=== PATIENT | female | born 1990 | race Caucasian/White ===

== ENCOUNTER 2016-12-17 19:59 | Emergency (ER) | payer BC, MEDICAID ==
[2016-12-17] MEDS ORDERED: Ondansetron 4 MG/2 ML SDV IVPUSH ONE (20:36)
[2016-12-17] MEDS ORDERED: HYDROmorphone 0.5 MG/0.5 ML Syringe ONE (20:46)
[2016-12-17] MEDS ORDERED: HYDROmorphone 0.5 MG/0.5 ML Syringe IVPUSH ONE (20:47)
[2016-12-17] MEDS ORDERED: Sodium Chloride 0.9% 1,000 ML IV SCH (21:00)
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
[2016-12-17 22:42] VITALS: BP 115/68
--- NOTE | 2016-12-19 10:07 | CR ---
Knee Min 4V Rt INDICATION: pain in rt knee. COMPARISON: None FINDINGS: 4 views. No fracture, dislocation, or other acute bony abnormality. No joint space suzanne rowing. IMPRESSION: Negative study.
--- NOTE | 2016-12-19 10:16 | CR ---
Shoulder Comp Lt INDICATION: pain in left clavicle area. COMPARISON: None FINDINGS: 3 views. No fracture, dislocation, or other acute bony abnormality. No joint space suzanne rowing. IMPRESSION: Negative study.
== END 2016-12-17 22:50 ==
LOC: JP.ED 19:59
DX: S06.5X1A Traumatic subdural hemorrhage with loss of consciousness of 30 minutes or less, initial encounter (principal); S02.119A Unspecified fracture of occiput, initial encounter for closed fracture; S80.01XA Contusion of right knee, initial encounter; V49.9XXA Car occupant (driver) (passenger) injured in unspecified traffic accident, initial encounter
CPT/HCPCS: 36415; 70450; 71250; 72125; 73030; 73564; 80053; 81001; 84703; 85025; 87086; 96374; 96375; 99285; J1170; J2405; J7040

== ENCOUNTER 2018-05-25 18:49 | Inpatient (IN) | payer MEDICAID ==
[2018-05-25] MEDS ORDERED: Misoprostol 50 MCG (1/2 of 100 MCG) Tab VAG ONE (21:21)
[2018-05-25] MEDS ORDERED: Sodium Chloride 0.9% 10 ML Syringe FLUSH PRN ×2 (21:26→21:29)
[2018-05-25] MEDS ORDERED: Ondansetron 4 MG/2 ML SDV IV PRN (21:29)
[2018-05-25] MEDS ORDERED: Acetaminophen 325 MG Tab PO PRN (21:29)
[2018-05-25] MEDS ORDERED: fentaNYL 100 MCG/2 ML SDV IVPUSH PRN (21:29)
[2018-05-25] MEDS ORDERED: Zolpidem 5 MG Tab PO ONE (21:31)
[2018-05-25] MEDS ORDERED: Lactated Ringers 1,000 ML IV SCH (21:45)
--- NOTE | 2018-05-25 22:13 | PCM.LDHP ---
L&D History of Present Illness - General Date of Service: 05/25/18 Admit Problem/Dx: Patient Status Order with Admit Dx/Problem 05/25/18 19:16 Admission Diagnosis [ADT] Routine 05/25/18 21:27 Patient Status [ADT] Routine Admission Diagnosis/Problem Admission Diagnosis/Problem - Related Data Allergies/Adverse Reactions: Allergies Allergy/AdvReac Type Severity Reaction Status Date / Time No Known Allergies Allergy Verified 08/11/15 15:07 Home Medications: Home Meds Omeprazole Magnesium 20 mg PO DAILY 05/23/18 [History] PNV95/Ferrous Fumarate/FA [ Tablet] 1 tab DAILY 05/23/18 [History] Past Medical History - Past Health History Medical/Surgical History: Denies Medical/Surgical History HEENT History: Reports: None Cardiovascular History: Reports: None Respiratory History: Reports: None Gastrointestinal History: Reports: None Genitourinary History: Reports: None 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 History: Reports: Fracture Other Musculoskeletal History: foot Neurological History: Reports: Concussion Psychiatric History: Reports: None Endocrine/Metabolic History: Reports: None Hematologic History: Reports: None Immunologic History: Reports: None Oncologic (Cancer) History: Reports: None Dermatologic History: Reports: None - Past Surgical History Head Surgeries/Procedures: Reports: None Social & Family History - Family History OBGYN: Reports: Other (See Below) Other OBGYN Family History: Mother had cervical cancer - Tobacco Use Smoking Status *Q: Never Smoker Second Hand Smoke Exposure: No - Caffeine Use Caffeine Use: Reports: None - Recreational Drug Use Recreational Drug Use: No H&P Review of Systems - Review of Systems: Review Of Systems: See Below General: Reports: No Symptoms HEENT: Reports: No Symptoms Pulmonary: Reports: No Symptoms Cardiovascular: Reports: No Symptoms Gastrointestinal: Reports: No Symptoms Genitourinary: Reports: No Symptoms Musculoskeletal: Reports: No Symptoms Skin: Reports: No Symptoms Psychiatric: Reports: No Symptoms Neurological: Reports: No Symptoms Hematologic/Lymphatic: Reports: No Symptoms Immunologic: Reports: No Symptoms L&D Exam - Exam Exam: See Below - Vital Signs Vital Signs: Last Vital Signs Temp 36.7 C 05/25/18 21:27 Pulse 80 05/25/18 21:27 Resp 18 05/25/18 21:27 BP 122/79 05/25/18 21:27 Pulse Ox Weight: 99.79 kg - OB Specific Contraction Frequency (min): none Heart Rate (FHR) Variability: Moderate (6-25 bmp) Presentation: Vertex - Patient Data Lab Results Last 24 hrs: Laboratory Results - last 24 hr 05/25/18 05/25/18 05/25/18 Range/Units 19:15 19:15 21:29 WBC 9.9 (4.5-11.0) K/uL RBC 4.32 (3.30-5.50) M/uL Hgb 12.6 (12.0-15.0) g/dL Hct 38.5 (36.0-48.0) % MCV 89 (80-98) fL MCH 29 (27-31) pg MCHC 33 (32-36) % Plt Count 197 (150-400) K/uL Neut % (Auto) 66 (36-66) % Lymph % (Auto) 21 L (24-44) % [place] % (Auto) 12 H (2-6) % Eos % (Auto) 1 L (2-4) % Baso % (Auto) 0 (0-1) % Sodium (140-148) mmol/L Potassium (3.6-5.2) mmol/L Chloride (100-108) mmol/L Carbon Dioxide (21-32) mmol/L Anion Gap (5.0-14.0) mmol/L BUN (7-18) mg/dL Creatinine (0.6-1.0) mg/dL Est Cr Clr Drug Dosing mL/min Estimated GFR (MDRD) (>60) Glucose (74-106) mg/dL Uric Acid (2.6-6.2) mg/dL Calcium (8.5-10.1) mg/dL Total Bilirubin (0.2-1.0) mg/dL AST (15-37) U/L ALT (12-78) U/L Alkaline Phosphatase (46-116) U/L Lactate Dehydrogenase (82-234) U/L Total Protein (6.4-8.2) g/dL Albumin (3.4-5.0) g/dL Globulin (2.3-3.5) g/dL Albumin/Globulin Ratio (1.2-2.2) Urine Color Yellow Urine Appearance Slightly cloudy Urine pH 7.0 (4.5-8.0) Ur Specific [place] 1.020 (1.008-1.030) Urine Protein Trace (NEGATIVE) mg/dL Urine Glucose (UA) Normal (NEGATIVE) mg/dL Urine Ketones Negative (NEGATIVE) mg/dL Urine Occult Blood Moderate (NEGATIVE) Urine Nitrite Negative (NEGATIVE) Urine Bilirubin Negative (NEGATIVE) Urine Urobilinogen Normal (NORMAL) mg/dL Ur Leukocyte Esterase Moderate (NEGATIVE) Urine RBC 10-20 H (0-5) Urine WBC 20-30 H (0-5) Ur Epithelial Cells Many Amorphous Sediment Not seen Urine Bacteria Many Urine Mucus Not seen Urine Opiates Screen Negative (NEGATIVE) Ur Oxycodone Screen Negative (NEGATIVE) Urine Methadone Screen Negative (NEGATIVE) Ur Propoxyphene Screen Negative (NEGATIVE) Ur Barbiturates Screen Negative (NEGATIVE) Ur Tricyclics Screen Negative (NEGATIVE) Ur Phencyclidine Scrn Negative (NEGATIVE) Ur Amphetamine Screen Negative (NEGATIVE) U Methamphetamines Scrn Negative (NEGATIVE) Urine MDMA Screen Negative (NEGATIVE) U Benzodiazepines Scrn Negative (NEGATIVE) U Cocaine Metab Screen Negative (NEGATIVE) U Marijuana (THC) Screen Negative (NEGATIVE) 05/25/18 05/25/18 Range/Units 21:29 21:29 WBC (4.5-11.0) K/uL RBC (3.30-5.50) M/uL Hgb (12.0-15.0) g/dL Hct (36.0-48.0) % MCV (80-98) fL MCH (27-31) pg MCHC (32-36) % Plt Count (150-400) K/uL Neut % (Auto) (36-66) % Lymph % (Auto) (24-44) % [place] % (Auto) (2-6) % Eos % (Auto) (2-4) % Baso % (Auto) (0-1) % Sodium 137 L (140-148) mmol/L Potassium 4.1 (3.6-5.2) mmol/L Chloride 104 (100-108) mmol/L Carbon Dioxide 23 (21-32) mmol/L Anion Gap 14.1 H (5.0-14.0) mmol/L BUN 13 (7-18) mg/dL Creatinine 0.7 (0.6-1.0) mg/dL Est Cr Clr Drug Dosing 117.39 mL/min Estimated GFR (MDRD) > 60 (>60) Glucose 89 (74-106) mg/dL Uric Acid 5.2 (2.6-6.2) mg/dL Calcium 9.2 (8.5-10.1) mg/dL Total Bilirubin 0.2 (0.2-1.0) mg/dL AST 16 (15-37) U/L ALT 20 (12-78) U/L Alkaline Phosphatase 142 H (46-116) U/L Lactate Dehydrogenase 136 (82-234) U/L Total Protein 6.4 (6.4-8.2) g/dL Albumin 2.0 L (3.4-5.0) g/dL Globulin 4.4 H (2.3-3.5) g/dL Albumin/Globulin Ratio 0.5 L (1.2-2.2) Urine Color Urine Appearance Urine pH (4.5-8.0) Ur Specific [place] (1.008-1.030) Urine Protein (NEGATIVE) mg/dL Urine Glucose (UA) (NEGATIVE) mg/dL Urine Ketones (NEGATIVE) mg/dL Urine Occult Blood (NEGATIVE) Urine Nitrite (NEGATIVE) Urine Bilirubin (NEGATIVE) Urine Urobilinogen (NORMAL) mg/dL Ur Leukocyte Esterase (NEGATIVE) Urine RBC (0-5) Urine WBC (0-5) Ur Epithelial Cells Amorphous Sediment Urine Bacteria Urine Mucus Urine Opiates Screen (NEGATIVE) Ur Oxycodone Screen (NEGATIVE) Urine Methadone Screen (NEGATIVE) Ur Propoxyphene Screen (NEGATIVE) Ur Barbiturates Screen (NEGATIVE) Ur Tricyclics Screen (NEGATIVE) Ur Phencyclidine Scrn (NEGATIVE) Ur Amphetamine Screen (NEGATIVE) U Methamphetamines Scrn (NEGATIVE) Urine MDMA Screen (NEGATIVE) U Benzodiazepines Scrn (NEGATIVE) U Cocaine Metab Screen (NEGATIVE) U Marijuana (THC) Screen (NEGATIVE) Result Diagrams: 05/25/18 21:29 05/25/18 21:29 - Problem List (1) SNOMED Code(s): 67235396 ICD Code: Z34.90 - ENCNTR FOR SUPRVSN OF NORMAL , UNSP, UNSP TRIMESTER Status: Acute Current Visit: Yes Qualifiers: Weeks of gestation: 38 weeks Qualified Code(s): Z3A.38 - 38 weeks gestation of (2) Preeclampsia SNOMED Code(s): 213571546 ICD Code: O14.90 - UNSPECIFIED PRE-ECLAMPSIA, UNSPECIFIED TRIMESTER Status : Acute Current Visit: Yes Qualifiers: Trimester: third trimester Qualified Code(s): O14.93 - Unspecified pre- eclampsia, third trimester (3) Proteinuria SNOMED Code(s): 85524245 ICD Code: R80.9 - PROTEINURIA, UNSPECIFIED Status: Acute Current Visit: Yes Qualifiers: Proteinuria type: gestational Trimester: third trimester Qualified Code(s ): O12.13 - Gestational proteinuria, third trimester (4) Encounter for induction of labor SNOMED Code(s): 123609523 ICD Code: Z34.90 - ENCNTR FOR SUPRVSN OF NORMAL , UNSP, UNSP TRIMESTER Status: Acute Current Visit: Yes Problem List Initiated/Reviewed/Updated: Yes Orders Last 24hrs: Active Orders 24 hr Category Date Time Status Admission Diagnosis [ADT] Routine ADT 05/25/18 19:16 Ordered Patient Status [ADT] Routine ADT 05/25/18 21:27 Active Ambulate [RC] PER UNIT ROUTINE Care 05/25/18 21:29 Active Communication Order [RC] ASDIRECTED Care 05/25/18 21:27 Active Communication Order [RC] ASDIRECTED Care 05/25/18 21:29 Active Notify Provider Vital Signs [RC] PRN Care 05/25/18 21:29 Active Notify Provider [RC] PRN Care 05/25/18 21:27 Active Up ad Yolanda [RC] ASDIRECTED Care 05/25/18 21:26 Active VTE/DVT Education [RC] Click to Edit Care 05/25/18 21:30 Active Vital Signs [RC] PER UNIT ROUTINE Care 05/25/18 21:27 Active Regular Diet [DIET] Diet 05/25/18 Dinner Active Acetaminophen [Tylenol] Med 05/25/18 21:29 Active 650 mg PO Q4H PRN Lactated Ringers [Ringers, Lactated] 1,000 ml Med 05/25/18 21:45 Active IV ASDIRECTED Ondansetron [Zofran] Med 05/25/18 21:29 Active 4 mg IV Q4H PRN Sodium Chloride 0.9% [Saline Flush] Med 05/25/18 21:26 Active 10 ml FLUSH ASDIRECTED PRN fentaNYL [Sublimaze] Med 05/25/18 21:29 Active 100 mcg IVPUSH Q1H PRN DVT/VTE Prophylaxis Reflex [OM.PC] Routine Oth 05/25/18 21:29 Ordered Saline Lock Insert [OM.PC] Routine Oth 05/25/18 21:27 Ordered Saline Lock Insert [OM.PC] Routine Oth 05/25/18 21:29 Ordered Resuscitation Status Routine Resus Stat 05/25/18 21:26 Ordered Medication Orders Acetaminophen (Tylenol) 650 mg PO Q4H PRN PRN Reason: Pain (Mild 1-3) and fever Fentanyl (Sublimaze) 100 mcg IVPUSH Q1H PRN PRN Reason: Pain (moderate 4-6) Lactated Ringer's (Ringers, Lactated) 1,000 mls @ 125 mls/hr IV ASDIRECTED BRENDEN Ondansetron HCl (Zofran) 4 mg IV Q4H PRN PRN Reason: Nausea/Vomiting Sodium Chloride (Saline Flush) 10 ml FLUSH ASDIRECTED PRN PRN Reason: Keep Vein Open Assessment/Plan Comment:: 05/25/2018 28 yo here at 38 5/7 for a medical induction due to preelampsia SVE-1/50/-2 FHTs category one No contractions noted Cytotec 50mcg vaginally Plan- Monitor for active labor Monitor FHTs CBC, CMP, LDH, uric acid today Pain medication per patient request Plan and anticipate vaginal delivery Ambien 10mg Intermittent monitoring
[2018-05-26] MEDS ORDERED: ePHEDrine 50 MG/ML SDV ONE (05:32)
[2018-05-26] MEDS ORDERED: Lactated Ringers 1,000 ML IV ONE (05:38)
[2018-05-26] MEDS ORDERED: Ropivacaine 100 ML ONE (06:42)
[2018-05-26] MEDS ORDERED: Acetaminophen 325 MG Tab, 50 Tab Bulk Bottle PO PRN (07:32)
[2018-05-26] MEDS ORDERED: Witch Hazel Medicated Pads 100/Jar TOP PRN (07:32)
[2018-05-26] MEDS ORDERED: Ibuprofen 200 MG Tab, 24 Tab Bulk Bottle PO PRN (07:32)
[2018-05-26] MEDS ORDERED: Lanolin 100% Cream 40 GM Tube TOP PRN (07:32)
[2018-05-26] MEDS ORDERED: Docusate Sodium 100 MG Cap PO PRN (07:32)
[2018-05-26] MEDS ORDERED: Benzocaine 20% Top Spray 56 GM Bottle TOP PRN (07:32)
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
--- NOTE | 2018-05-26 08:17 | PCM.DEL ---
L & D Note - General Info Date of Service: 05/26/18 - Delivery Note Cervical Ripening Method: Misoprostil Delivery Outcome: Livebirth Delivery Method: Spontaneous Vaginal Delivery-Single Delivery Mode: Spontaneous Presentation: Vertex Nuchal Cord: None Anesthesia Type: Epidural Episiotomy Type: None Laceration: None Placenta: Intact, Spontaneous Cord: 3 Vessels Estimated Blood Loss: 250 Resuscitation Needed: No : Bulb Syringe, Stimulated, Warmed, [place] Used Second Stage Interventions: Reports: Encouragement Given, Pushing Effectively, Pushing, McRobert's Position Delivery Comments (Free Text/Narrative):: 05/26/2018 28 yo delivered a viable male infant at 38 6/7 gestational weeks at 0719 on 05/26/2018 in [place] position over an intact perineum. delivered and placed on prewarmed blanket on mother's abdomen, cord then double clamped after delayed cord clamping and cut by father of infant. Infant dried, stimulated, and warmed. began to cry vigorously and pink in color. APGARS-9/9, weight-7lbs 10.4oz, length-19.8 inches, Placenta spontaneous, EBL-250ml, 3 vessel cord. No lacerations noted of the cervix, vagina, perineum, or rectum. Infant now skin to skin with mother and both stable. Stages- [id number] - General Info Date of Service: 05/26/18 Functional Status: Reports: Pain Controlled - Review of Systems General: Reports: No Symptoms HEENT: Reports: No Symptoms Pulmonary: Reports: No Symptoms Cardiovascular: Reports: No Symptoms Gastrointestinal: Reports: No Symptoms Genitourinary: Reports: No Symptoms Musculoskeletal: Reports: No Symptoms Skin: Reports: No Symptoms Neurological: Reports: No Symptoms Psychiatric: Reports: No Symptoms - Patient Data Vitals - Most Recent: Last Vital Signs Temp 37.1 C 05/26/18 06:30 Pulse 78 05/26/18 06:45 Resp 20 05/26/18 06:45 BP 142/78 H 05/26/18 06:45 Pulse Ox 97 05/26/18 06:45 Weight - Most Recent: 99.79 kg Lab Results Last 24 Hours: Laboratory Results - last 24 hr 05/25/18 05/25/18 05/25/18 Range/Units 19:15 19:15 21:29 WBC 9.9 (4.5-11.0) K/uL RBC 4.32 (3.30-5.50) M/uL Hgb 12.6 (12.0-15.0) g/dL Hct 38.5 (36.0-48.0) % MCV 89 (80-98) fL MCH 29 (27-31) pg MCHC 33 (32-36) % Plt Count 197 (150-400) K/uL Neut % (Auto) 66 (36-66) % Lymph % (Auto) 21 L (24-44) % [place] % (Auto) 12 H (2-6) % Eos % (Auto) 1 L (2-4) % Baso % (Auto) 0 (0-1) % Sodium (140-148) mmol/L Potassium (3.6-5.2) mmol/L Chloride (100-108) mmol/L Carbon Dioxide (21-32) mmol/L Anion Gap (5.0-14.0) mmol/L BUN (7-18) mg/dL Creatinine (0.6-1.0) mg/dL Est Cr Clr Drug Dosing mL/min Estimated GFR (MDRD) (>60) Glucose (74-106) mg/dL Uric Acid (2.6-6.2) mg/dL Calcium (8.5-10.1) mg/dL Total Bilirubin (0.2-1.0) mg/dL AST (15-37) U/L ALT (12-78) U/L Alkaline Phosphatase (46-116) U/L Lactate Dehydrogenase (82-234) U/L Total Protein (6.4-8.2) g/dL Albumin (3.4-5.0) g/dL Globulin (2.3-3.5) g/dL Albumin/Globulin Ratio (1.2-2.2) Urine Color Yellow Urine Appearance Slightly cloudy Urine pH 7.0 (4.5-8.0) Ur Specific [place] 1.020 (1.008-1.030) Urine Protein Trace (NEGATIVE) mg/dL Urine Glucose (UA) Normal (NEGATIVE) mg/dL Urine Ketones Negative (NEGATIVE) mg/dL Urine Occult Blood Moderate (NEGATIVE) Urine Nitrite Negative (NEGATIVE) Urine Bilirubin Negative (NEGATIVE) Urine Urobilinogen Normal (NORMAL) mg/dL Ur Leukocyte Esterase Moderate (NEGATIVE) Urine RBC 10-20 H (0-5) Urine WBC 20-30 H (0-5) Ur Epithelial Cells Many Amorphous Sediment Not seen Urine Bacteria Many Urine Mucus Not seen Urine Opiates Screen Negative (NEGATIVE) Ur Oxycodone Screen Negative (NEGATIVE) Urine Methadone Screen Negative (NEGATIVE) Ur Propoxyphene Screen Negative (NEGATIVE) Ur Barbiturates Screen Negative (NEGATIVE) Ur Tricyclics Screen Negative (NEGATIVE) Ur Phencyclidine Scrn Negative (NEGATIVE) Ur Amphetamine Screen Negative (NEGATIVE) U Methamphetamines Scrn Negative (NEGATIVE) Urine MDMA Screen Negative (NEGATIVE) U Benzodiazepines Scrn Negative (NEGATIVE) U Cocaine Metab Screen Negative (NEGATIVE) U Marijuana (THC) Screen Negative (NEGATIVE) 05/25/18 05/25/18 Range/Units 21:29 21:29 WBC (4.5-11.0) K/uL RBC (3.30-5.50) M/uL Hgb (12.0-15.0) g/dL Hct (36.0-48.0) % MCV (80-98) fL MCH (27-31) pg MCHC (32-36) % Plt Count (150-400) K/uL Neut % (Auto) (36-66) % Lymph % (Auto) (24-44) % [place] % (Auto) (2-6) % Eos % (Auto) (2-4) % Baso % (Auto) (0-1) % Sodium 137 L (140-148) mmol/L Potassium 4.1 (3.6-5.2) mmol/L Chloride 104 (100-108) mmol/L Carbon Dioxide 23 (21-32) mmol/L Anion Gap 14.1 H (5.0-14.0) mmol/L BUN 13 (7-18) mg/dL Creatinine 0.7 (0.6-1.0) mg/dL Est Cr Clr Drug Dosing 117.39 mL/min Estimated GFR (MDRD) > 60 (>60) Glucose 89 (74-106) mg/dL Uric Acid 5.2 (2.6-6.2) mg/dL Calcium 9.2 (8.5-10.1) mg/dL Total Bilirubin 0.2 (0.2-1.0) mg/dL AST 16 (15-37) U/L ALT 20 (12-78) U/L Alkaline Phosphatase 142 H (46-116) U/L Lactate Dehydrogenase 136 (82-234) U/L Total Protein 6.4 (6.4-8.2) g/dL Albumin 2.0 L (3.4-5.0) g/dL Globulin 4.4 H (2.3-3.5) g/dL Albumin/Globulin Ratio 0.5 L (1.2-2.2) Urine Color Urine Appearance Urine pH (4.5-8.0) Ur Specific [place] (1.008-1.030) Urine Protein (NEGATIVE) mg/dL Urine Glucose (UA) (NEGATIVE) mg/dL Urine Ketones (NEGATIVE) mg/dL Urine Occult Blood (NEGATIVE) Urine Nitrite (NEGATIVE) Urine Bilirubin (NEGATIVE) Urine Urobilinogen (NORMAL) mg/dL Ur Leukocyte Esterase (NEGATIVE) Urine RBC (0-5) Urine WBC (0-5) Ur Epithelial Cells Amorphous Sediment Urine Bacteria Urine Mucus Urine Opiates Screen (NEGATIVE) Ur Oxycodone Screen (NEGATIVE) Urine Methadone Screen (NEGATIVE) Ur Propoxyphene Screen (NEGATIVE) Ur Barbiturates Screen (NEGATIVE) Ur Tricyclics Screen (NEGATIVE) Ur Phencyclidine Scrn (NEGATIVE) Ur Amphetamine Screen (NEGATIVE) U Methamphetamines Scrn (NEGATIVE) Urine MDMA Screen (NEGATIVE) U Benzodiazepines Scrn (NEGATIVE) U Cocaine Metab Screen (NEGATIVE) U Marijuana (THC) Screen (NEGATIVE) Med Orders - Current: Current Medications Acetaminophen (Tylenol) 650 mg PO Q4H PRN PRN Reason: Pain (Mild 1-3) and fever Acetaminophen (Tylenol Bulk Bottle) 325 - 650 mg PO Q4H PRN PRN Reason: Pain Benzocaine (Qomb-J-Wdyxgio 20% [place]) 0 gm TOP Q4H PRN PRN Reason: Perineal Comfort Measure Docusate Sodium (Colace) 100 mg PO BID PRN PRN Reason: Constipation Emollient Ointment (Lansinoh Hpa) 0 gm TOP ASDIRECTED PRN PRN Reason: Sore Nipples Fentanyl (Sublimaze) 100 mcg IVPUSH Q1H PRN PRN Reason: Pain (moderate 4-6) Lactated Ringer's (Ringers, Lactated) 1,000 mls @ 125 mls/hr IV ASDIRECTED BRENDEN Last Admin: 05/26/18 05:38 Dose: 125 mls/hr Ibuprofen (Motrin Bulk Bottle) 600 mg PO Q6H PRN PRN Reason: Pain Ondansetron HCl (Zofran) 4 mg IV Q4H PRN PRN Reason: Nausea/Vomiting Sodium Chloride (Saline Flush) 10 ml FLUSH ASDIRECTED PRN PRN Reason: Keep Vein Open Witch Tamanna (Tucks) 1 pad TOP ASDIRECTED PRN PRN Reason: Hemorrhoids Discontinued Medications Ephedrine Sulfate (Ephedrine Sulfate) Confirm Administered Dose 50 mg .ROUTE .STK-MED ONE Stop: 05/26/18 05:33 Lactated Ringer's (Ringers, Lactated) 1,000 mls @ 999 mls/hr IV BOLUS ONE Stop: 05/26/18 06:38 Last Admin: 05/26/18 06:03 Dose: 999 mls/hr Ropivacaine (Naropin 0.2%) Confirm Administered Dose 100 mls @ as directed .ROUTE .STK-MED ONE Stop: 05/26/18 06:43 Oxytocin/Sodium Chloride (Pitocin In Ns 20 Units/1,000 Ml) 20 unit in 1,000 mls @ 2,997 mls/hr IV ONETIME ONE; Protocol Stop: 05/26/18 07:56 Misoprostol (Cytotec) 50 mcg VAG ONETIME ONE Stop: 05/25/18 21:22 Last Admin: 05/25/18 21:47 Dose: 50 mcg Zolpidem Tartrate (Ambien) 10 mg PO ONETIME ONE Stop: 05/25/18 21:32 Last Admin: 05/26/18 02:14 Dose: Not Given - Exam General: Alert, Oriented HEENT: Pupils Equal, Pupils Reactive, EOMI, Mucous Membr. Moist/[place] Neck: Supple Lungs: Clear to Auscultation, Normal Respiratory Effort Cardiovascular: Regular Rate, Regular Rhythm GI/Abdominal Exam: Normal Bowel Sounds, Soft, Non-Tender, No Organomegaly, No Distention, No Abnormal Bruit, No Mass, Pelvis Stable (Female) Exam: Normal External Exam Back Exam: Normal Inspection, Full Range of Motion Extremities: Normal Inspection, Normal Range of Motion, Non-Tender, No Pedal Edema, Normal Capillary Refill Skin: Warm, Dry, Intact Neurological: No New Focal Deficit Psy/Mental Status: Alert, Normal Affect, Normal Mood - Problem List & Annotations (1) SNOMED Code(s): 14235714 Code(s): Z34.90 - ENCNTR FOR SUPRVSN OF NORMAL , UNSP, UNSP TRIMESTER Status: Acute Current Visit: Yes Qualifiers: Weeks of gestation: 38 weeks Qualified Code(s): Z3A.38 - 38 weeks gestation of (2) Preeclampsia SNOMED Code(s): 059999444 Code(s): O14.90 - UNSPECIFIED PRE-ECLAMPSIA, UNSPECIFIED TRIMESTER Status: Acute Current Visit: Yes Qualifiers: Trimester: third trimester Qualified Code(s): O14.93 - Unspecified pre- eclampsia, third trimester (3) Proteinuria SNOMED Code(s): 57347927 Code(s): R80.9 - PROTEINURIA, UNSPECIFIED Status: Acute Current Visit: Yes Qualifiers: Proteinuria type: gestational Trimester: third trimester Qualified Code(s ): O12.13 - Gestational proteinuria, third trimester (4) Encounter for induction of labor SNOMED Code(s): 797960131 Code(s): Z34.90 - ENCNTR FOR SUPRVSN OF NORMAL , UNSP, UNSP TRIMESTER Status: Acute Current Visit: Yes (5) Normal vaginal delivery SNOMED Code(s): 06309078 Code(s): O80 - ENCOUNTER FOR FULL-TERM UNCOMPLICATED DELIVERY Status: Acute Current Visit: Yes (6) () SNOMED Code(s): 728500874 Code(s): Z78.9 - OTHER SPECIFIED HEALTH STATUS Status: Acute Current Visit: Yes - Problem List Review Problem List Initiated/Reviewed/Updated: Yes - My Orders Last 24 Hours: My Active Orders 05/25/18 19:16 Admission Diagnosis [ADT] Routine 05/25/18 21:26 Up ad Yolanda [RC] ASDIRECTED Sodium Chloride 0.9% [Saline Flush] 10 ml FLUSH ASDIRECTED PRN Resuscitation Status Routine 05/25/18 21:27 Patient Status [ADT] Routine Communication Order [RC] ASDIRECTED Notify Provider [RC] PRN Vital Signs [RC] PER UNIT ROUTINE Saline Lock Insert [OM.PC] Routine 05/25/18 21:29 Ambulate [RC] PER UNIT ROUTINE Communication Order [RC] ASDIRECTED Notify Provider Vital Signs [RC] PRN Acetaminophen [Tylenol] 650 mg PO Q4H PRN Ondansetron [Zofran] 4 mg IV Q4H PRN fentaNYL [Sublimaze] 100 mcg IVPUSH Q1H PRN DVT/VTE Prophylaxis Reflex [OM.PC] Routine Saline Lock Insert [OM.PC] Routine 05/25/18 21:30 VTE/DVT Education [RC] Click to Edit 05/25/18 21:45 Lactated Ringers [Ringers, Lactated] 1,000 ml IV ASDIRECTED 05/25/18 Dinner Regular Diet [DIET] 05/26/18 07:32 Acetaminophen [Tylenol Bulk Bottle] 325 - 650 mg PO Q4H PRN Benzocaine [Tmir-L-Gxtczhs 20% [place]] See Dose Instructions TOP Q4H PRN Docusate Sodium [Colace] 100 mg PO BID PRN Ibuprofen [Motrin Bulk Bottle] 600 mg PO Q6H PRN Lanolin [Lansinoh HPA] 0 gm TOP ASDIRECTED PRN Witch Tamanna [Tucks] 1 pad TOP ASDIRECTED PRN Assess Lochia [WOMSER] Per Unit Routine Assess Uterine Involution [WOMSER] Per Unit Routine 05/26/18 07:33 Patient Status [ADT] Routine Vital Signs [RC] PFP Perineal Care [OM.PC] Per Unit Routine 05/27/18 07:32 CBC WITH AUTO DIFF [HEME] Routine - Assessment Assessment:: 05/26/2018 28 yo G3 now P2 without complications at 0719 on 05/26/2018 Preeclampsia with proteinuria Labs-O positive, Hep B neg, Hep C neg, HIV neg, RPR nonreactive, GBS neg - Plan Plan:: 05/25/2018 28 yo here at 38 5/7 for a medical induction due to preelampsia SVE-1/50/-2 FHTs category one No contractions noted Cytotec 50mcg vaginally Plan- Monitor for active labor Monitor FHTs CBC, CMP, LDH, uric acid today Pain medication per patient request Plan and anticipate vaginal delivery Ambien 10mg Intermittent monitoring 05/26/2018 Routine cares Encourage and support
--- NOTE | 2018-05-27 06:44 | PCM.PNPP ---
- General Info Date of Service: 05/27/18 Functional Status: Reports: Pain Controlled - Review of Systems General: Reports: No Symptoms HEENT: Reports: No Symptoms Pulmonary: Reports: No Symptoms Cardiovascular: Reports: No Symptoms Gastrointestinal: Reports: No Symptoms Genitourinary: Reports: No Symptoms Musculoskeletal: Reports: No Symptoms Skin: Reports: No Symptoms Neurological: Reports: No Symptoms Psychiatric: Reports: No Symptoms - General Info Date of Service: 05/27/18 - Patient Data Vital Signs - Most Recent: Last Vital Signs Temp 36.7 C 05/27/18 03:43 Pulse 67 05/27/18 03:43 Resp 18 05/27/18 03:43 BP 103/69 05/27/18 03:43 Pulse Ox 95 05/27/18 03:43 Weight - Most Recent: 99.79 kg I&O - Last 24 Hours: Intake & Output 05/26/18 05/26/18 05/27/18 14:59 22:59 06:59 Intake Total 2290 1500 Balance 2290 1500 Lab Results - Last 24 Hours: Laboratory Results - last 24 hr 05/27/18 Range/Units 05:38 WBC 10.0 (4.5-11.0) K/uL RBC 4.04 (3.30-5.50) M/uL Hgb 12.0 (12.0-15.0) g/dL Hct 36.5 (36.0-48.0) % MCV 90 (80-98) fL MCH 30 (27-31) pg MCHC 33 (32-36) % Plt Count 163 (150-400) K/uL Neut % (Auto) 68 H (36-66) % Lymph % (Auto) 20 L (24-44) % [place] % (Auto) 11 H (2-6) % Eos % (Auto) 1 L (2-4) % Baso % (Auto) 0 (0-1) % Med Orders - Current: Current Medications Acetaminophen (Tylenol) 650 mg PO Q4H PRN PRN Reason: Pain (Mild 1-3) and fever Acetaminophen (Tylenol Bulk Bottle) 325 - 650 mg PO Q4H PRN PRN Reason: Pain Last Admin: 05/26/18 08:20 Dose: 325 mg Benzocaine (Kjzh-V-Kxanuby 20% [place]) 0 gm TOP Q4H PRN PRN Reason: Perineal Comfort Measure Last Admin: 05/26/18 08:19 Dose: 1 applic Docusate Sodium (Colace) 100 mg PO BID PRN PRN Reason: Constipation Emollient Ointment (Lansinoh Hpa) 0 gm TOP ASDIRECTED PRN PRN Reason: Sore Nipples Last Admin: 05/26/18 13:07 Dose: 1 applic Fentanyl (Sublimaze) 100 mcg IVPUSH Q1H PRN PRN Reason: Pain (moderate 4-6) Lactated Ringer's (Ringers, Lactated) 1,000 mls @ 125 mls/hr IV ASDIRECTED BRENDEN Last Admin: 05/26/18 05:38 Dose: 125 mls/hr Ibuprofen (Motrin Bulk Bottle) 600 mg PO Q6H PRN PRN Reason: Pain Last Admin: 05/26/18 08:20 Dose: 600 mg Ondansetron HCl (Zofran) 4 mg IV Q4H PRN PRN Reason: Nausea/Vomiting Sodium Chloride (Saline Flush) 10 ml FLUSH ASDIRECTED PRN PRN Reason: Keep Vein Open Witch Tamanna (Tucks) 1 pad TOP ASDIRECTED PRN PRN Reason: Hemorrhoids Discontinued Medications Ephedrine Sulfate (Ephedrine Sulfate) Confirm Administered Dose 50 mg .ROUTE .STK-MED ONE Stop: 05/26/18 05:33 Last Admin: 05/26/18 10:33 Dose: Not Given Lactated Ringer's (Ringers, Lactated) 1,000 mls @ 999 mls/hr IV BOLUS ONE Stop: 05/26/18 06:38 Last Admin: 05/26/18 06:03 Dose: 999 mls/hr Ropivacaine (Naropin 0.2%) Confirm Administered Dose 100 mls @ as directed .ROUTE .STK-MED ONE Stop: 05/26/18 06:43 Oxytocin/Sodium Chloride (Pitocin In Ns 20 Units/1,000 Ml) 20 unit in 1,000 mls @ 2,997 mls/hr IV ONETIME ONE; Protocol Stop: 05/26/18 07:56 Last Admin: 05/26/18 07:20 Dose: 999 munits/min, 500 mls/hr Misoprostol (Cytotec) 50 mcg VAG ONETIME ONE Stop: 05/25/18 21:22 Last Admin: 05/25/18 21:47 Dose: 50 mcg Zolpidem Tartrate (Ambien) 10 mg PO ONETIME ONE Stop: 05/25/18 21:32 Last Admin: 05/26/18 02:14 Dose: Not Given - Infant Interaction Disposition, : [place] in Room with Family Infant Interaction: Holding Infant Infant Feeding: Breastfed Infant; Nursed Well Support Person: Significant Other - Recovery Exam Fundal Tone: Firm Fundal Level: 1 Fingerbreadths Below Umbilicus Fundal Placement: Midline Lochia Amount: Moderate Lochia Color: Rubra/Red Perineum Description: Intact, Minimal Bruising/Swelling Episiotomy/Laceration: None Urinary Elimination: Voided - Exam General: Alert, Oriented, Cooperative HEENT: Pupils Equal Neck: Supple Lungs: Clear to Auscultation, Normal Respiratory Effort Cardiovascular: Regular Rate, Regular Rhythm GI/Abdominal Exam: Normal Bowel Sounds, Soft, Non-Tender, No Organomegaly, No Distention, No Abnormal Bruit, No Mass, Pelvis Stable Extremities: Normal Inspection, Normal Range of Motion, Non-Tender, No Pedal Edema, Normal Capillary Refill Skin: Warm, Dry, Intact Neurological: No New Focal Deficit Psy/Mental Status: Alert, Normal Affect, Normal Mood - Problem List & Annotations (1) SNOMED Code(s): 39419530 Code(s): Z34.90 - ENCNTR FOR SUPRVSN OF NORMAL , UNSP, UNSP TRIMESTER Status: Acute Current Visit: Yes Qualifiers: Weeks of gestation: 38 weeks Qualified Code(s): Z3A.38 - 38 weeks gestation of (2) Preeclampsia SNOMED Code(s): 894200635 Code(s): O14.90 - UNSPECIFIED PRE-ECLAMPSIA, UNSPECIFIED TRIMESTER Status: Acute Current Visit: Yes Qualifiers: Trimester: third trimester Qualified Code(s): O14.93 - Unspecified pre- eclampsia, third trimester (3) Proteinuria SNOMED Code(s): 11210037 Code(s): R80.9 - PROTEINURIA, UNSPECIFIED Status: Acute Current Visit: Yes Qualifiers: Proteinuria type: gestational Trimester: third trimester Qualified Code(s ): O12.13 - Gestational proteinuria, third trimester (4) Encounter for induction of labor SNOMED Code(s): 937609258 Code(s): Z34.90 - ENCNTR FOR SUPRVSN OF NORMAL , UNSP, UNSP TRIMESTER Status: Acute Current Visit: Yes (5) Normal vaginal delivery SNOMED Code(s): 71160334 Code(s): O80 - ENCOUNTER FOR FULL-TERM UNCOMPLICATED DELIVERY Status: Acute Current Visit: Yes (6) (infant) SNOMED Code(s): 300210223 Code(s): Z78.9 - OTHER SPECIFIED HEALTH STATUS Status: Acute Current Visit: Yes - Problem List Review Problem List Initiated/Reviewed/Updated: Yes - My Orders Last 24 Hours: My Active Orders 05/26/18 07:32 Acetaminophen [Tylenol Bulk Bottle] 325 - 650 mg PO Q4H PRN Benzocaine [Wwcj-L-Yyzywyc 20% [place]] See Dose Instructions TOP Q4H PRN Docusate Sodium [Colace] 100 mg PO BID PRN Ibuprofen [Motrin Bulk Bottle] 600 mg PO Q6H PRN Lanolin [Lansinoh HPA] 0 gm TOP ASDIRECTED PRN Witch Tamanna [Tucks] 1 pad TOP ASDIRECTED PRN Assess Lochia [WOMSER] Per Unit Routine Assess Uterine Involution [WOMSER] Per Unit Routine 05/26/18 07:33 Patient Status [ADT] Routine Perineal Care [OM.PC] Per Unit Routine - Assessment Assessment:: 05/26/2018 28 yo G3 now P2 without complications at 0719 on 05/26/2018 Preeclampsia with proteinuria Labs-O positive, Hep B neg, Hep C neg, HIV neg, RPR nonreactive, GBS neg 05/27/2018 day one Voiding and passing gas Fundus firm and bleeding decreasing well Hgb-12.0 - Plan Plan:: 05/25/2018 28 yo here at 38 5/7 for a medical induction due to preelampsia SVE-/50/-2 FHTs category one No contractions noted Cytotec 50mcg vaginally Plan- Monitor for active labor Monitor FHTs CBC, CMP, LDH, uric acid today Pain medication per patient request Plan and anticipate vaginal delivery Ambien 10mg Intermittent monitoring 05/26/2018 Routine cares Encourage and support 05/27/2018 Continue routine cares Continue to encourage and support Discharge home today To see me in the clinic in six weeks for visit
[2018-05-27 07:02] VITALS: BP 110/67
== END 2018-05-27 10:35 | disposition home or self-care (01) | DRG 807 ==
LOC: JP.MS 18:49 → JP.OB 05-26 04:40 → OBSVTOIN 05-26 07:33 → JP.MS 05-26 09:31
PROVIDERS: ADMIT Advanced Practice Midwife; ATTEND Advanced Practice Midwife
PROC: 10E0XZZ Delivery of Products of Conception, External Approach (ICD-10-PCS; principal; 2018-05-26)
PROC: 3E0P7VZ Introduction of Hormone into Female Reproductive, Via Natural or Artificial Opening (ICD-10-PCS; 2018-05-26)
PROC: 3E033VJ Introduction of Other Hormone into Peripheral Vein, Percutaneous Approach (ICD-10-PCS; 2018-05-26)
DX: O14.94 Unspecified pre-eclampsia, complicating childbirth (principal); Z37.0 Single live birth; Z3A.38 38 weeks gestation of pregnancy
CPT/HCPCS: 36415; 59409; 80053; 80305-QW; 81001; 83615; 84550; 85025; A9270-GY; J2590; J2795; J7120

== ENCOUNTER 2019-09-07 20:07 | Emergency (ER) | payer MEDICAID ==
[2019-09-07 20:26] VITALS: BP 111/68; PULSE 74
--- NOTE | 2019-09-07 21:50 | EDM.PDOC ---
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 No significant cramping. No dysuria. 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: Musculoskeletal History: Reports: Fracture Other Musculoskeletal History: foot Neurological History: Reports: Concussion Psychiatric History: Reports: None Endocrine/Metabolic History: Reports: None Hematologic History: Reports: None Immunologic History: Reports: None Oncologic (Cancer) History: Reports: None Dermatologic History: Reports: None - Past Surgical History Head Surgeries/Procedures: Reports: None Social & Family History - Family History OBGYN: Reports: Other (See Below) Other OBGYN Family History: Mother had cervical cancer - Tobacco Use Smoking Status *Q: Never Smoker - Caffeine Use Caffeine Use: Reports: None ED ROS GENERAL - Review of Systems Review Of Systems: See Below Constitutional: Denies: Fever, Chills Respiratory: Reports: No Symptoms Cardiovascular: Reports: No Symptoms GI/Abdominal: Reports: Other (Mild lower abdominal cramping) : Reports: No Symptoms Skin: Reports: No Symptoms ED EXAM - Physical Exam Exam: See Below Exam Limited By: No Limitations General Appearance: Alert, No Apparent Distress Respiratory/Chest: No Respiratory Distress GI/Abdominal Exam: Soft, Non-Tender Neurological: Alert, Oriented Psychiatric: Normal Affect, Normal Mood Skin Exam: Warm, Dry Course - Vital Signs Last Recorded V/S: Last Vital Signs Temp 97.6 F 09/07/19 20:25 Pulse 74 09/07/19 20:25 Resp 14 09/07/19 20:25 BP 111/68 09/07/19 20:25 Pulse Ox 98 09/07/19 20:25 - Orders/Labs/Meds Labs: Laboratory Tests 09/07/19 Range/Units 20:48 HCG, Quant 2628 H (0-6) mIU/mL - Re-Assessments/Exams Free Text/Narrative Re-Assessment/Exam: 09/08/19 02:22 Quantitative beta-hCG was drawn and is only 2600. My recommendation was to repeat the level in 2 days, she may be ready for an ultrasound at that time. If she develops heavier bleeding and pain she is likely miscarrying and can be rechecked if concerns regarding symptoms. Departure - Departure Time of Disposition: 22:48 Disposition: Home, Self-Care 01 Clinical Impression: Threatened - Discharge Information Instructions: Vaginal Bleeding During , First Trimester Referrals: Zandra Perdomo CNM [Primary Care Provider] - Forms: ED Department Discharge Care Plan Goals: Recheck on Monday for a second blood test or possible ultrasound, unless bleeding and pain increase significantly then no follow-up is necessarily needed. Your beta hCG level was 2600. Sepsis Event Note - Evaluation Sepsis Screening Result: No Definite Risk - Focused Exam Vital Signs: Vital Signs Temp Pulse Resp BP Pulse Ox 09/07/19 20:25 97.6 F 74 14 111/68 98 Date Exam was Performed: 09/08/19 Time Exam was Performed: 02:21
== END 2019-09-07 22:49 | disposition home or self-care (01) ==
LOC: JP.ED 20:07
DX: O20.0 Threatened abortion (principal); Z79.899 Other long term (current) drug therapy; Z3A.01 Less than 8 weeks gestation of pregnancy
CPT/HCPCS: 36415; 84702; 99284

== ENCOUNTER 2020-09-05 01:35 | Inpatient (IN) | payer MEDICAID ==
[2020-09-05] MEDS ORDERED: diphenhydrAMINE 50 MG/ML SDV IVPUSH PRN ×2 (01:58)
[2020-09-05] MEDS ORDERED: ePHEDrine 50 MG/ML SDV IVPUSH PRN ×2 (01:58→02:14)
[2020-09-05] MEDS ORDERED: Naloxone 0.4 MG/ML SDV IVPUSH PRN (01:58)
[2020-09-05] MEDS ORDERED: Lactated Ringers 1,000 ML IV ONE ×2 (01:58→02:14)
[2020-09-05] MEDS ORDERED: Sodium Chloride 0.9% 10 ML Syringe FLUSH PRN ×2 (01:58→02:14)
[2020-09-05] MEDS ORDERED: Ropivacaine 200 MG in Premix Bag 1 BAG EPIDUR SCH (02:00)
[2020-09-05] MEDS ORDERED: Naloxone 0.4 MG/ML SDV ONE (02:07)
[2020-09-05] MEDS ORDERED: Lidocaine 1% 50 ML MDV ONE (02:07)
--- NOTE | 2020-09-05 02:22 | PCM.LDHP ---
L&D History of Present Illness - General Date of Service: 09/05/20 Admit Problem/Dx: Patient Status Order with Admit Dx/Problem 09/05/20 02:14 Patient Status [ADT] Routine Admission Diagnosis/Problem Admission Diagnosis/Problem Source of Information: Patient History Limitations: Reports: No Limitations - History of Present Illness Timing/Duration: Reports: minutes: (1-2), constant/continuous Severity: Severe Improves with: Reports: None Worsens with: Reports: None - Related Data Allergies/Adverse Reactions: Allergies Allergy/AdvReac Type Severity Reaction Status Date / Time latex Allergy Rash Verified 08/30/20 11:25 Home Medications: Home Meds Pnv No.95/Ferrous Fum/Folic AC [ Tablet] 1 tab PO DAILY 05/23/18 [History] hydrOXYzine HCL [hydrOXYzine] 1 tab PO TID PRN 08/30/20 [History] Past Medical History - Past Health History Medical/Surgical History: Denies Medical/Surgical History HEENT History: Reports: None Cardiovascular History: Reports: None Respiratory History: Reports: None Gastrointestinal History: Reports: None Genitourinary History: Reports: None 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 Para: 2 LMP (Approximate): (PEDRO 09/08/20) Musculoskeletal History: Reports: Fracture Other Musculoskeletal History: foot Neurological History: Reports: Concussion Psychiatric History: Reports: None Endocrine/Metabolic History: Reports: None Hematologic History: Reports: None Immunologic History: Reports: None Oncologic (Cancer) History: Reports: None Dermatologic History: Reports: None - Past Surgical History Head Surgeries/Procedures: Reports: None Social & Family History - Family History OBGYN: Reports: Other (See Below) Other OBGYN Family History: Mother had cervical cancer - Caffeine Use Caffeine Use: Reports: Energy Drinks, Soda H&P Review of Systems - Review of Systems: Review Of Systems: See Below General: Reports: No Symptoms HEENT: Reports: No Symptoms Pulmonary: Reports: No Symptoms Cardiovascular: Reports: No Symptoms Gastrointestinal: Reports: No Symptoms Genitourinary: Reports: No Symptoms Musculoskeletal: Reports: No Symptoms Skin: Reports: No Symptoms Psychiatric: Reports: No Symptoms Neurological: Reports: No Symptoms Hematologic/Lymphatic: Reports: No Symptoms Immunologic: Reports: No Symptoms L&D Exam - Exam Exam: See Below - OB Specific Contraction Intensity: Strong Movement: Active Heart Tones: Present Heart Tones per Min: 135 Heart Rate (FHR) Variability: Moderate (6-25 bmp) Presentation: Vertex Estimated Weight: 7 pounds - Sun Score Sun Score Cervix Position: Anterior Sun Score Consistency: Soft Sun Score Effacement: >80% Sun Score Dilation: > 5 cm Sun Score 's Station: -1 ,0 Sun Score Total: 12 - Exam General: Alert, Oriented HEENT: PERRLA Neck: Supple Lungs: Normal Respiratory Effort Cardiovascular: Regular Rate GI/Abdominal Exam: Normal Bowel Sounds Genitourinary: Normal external exam Back Exam: Normal Inspection Extremities: Normal Inspection, No Pedal Edema Skin: Warm Neurological: Cranial Nerves Intact Psychiatric: Alert, Normal Affect, Normal Mood - Patient Data Lab Results Last 24 hrs: Laboratory Results - last 24 hr 09/05/20 Range/Units 01:59 WBC 13.0 H (4.5-11.0) K/uL RBC 4.75 (3.30-5.50) M/uL Hgb 13.8 (12.0-15.0) g/dL Hct 41.6 (36.0-48.0) % MCV 88 (80-98) fL MCH 29 (27-31) pg MCHC 33 (32-36) % Plt Count 231 (150-400) K/uL Result Diagrams: 09/05/20 01:59 - Problem List (1) Active labor at term SNOMED Code(s): 34802143 ICD Code: [id number] - Status: Acute Current Visit: Yes Problem List Initiated/Reviewed/Updated: Yes Orders Last 24hrs: Active Orders 24 hr Category Date Time Status Patient Status [ADT] Routine ADT 09/05/20 02:14 Ordered Antiembolic Devices [RC] .Routine Care 09/05/20 02:16 Ordered Communication Order [RC] ASDIRECTED Care 09/05/20 02:14 Ordered Communication Order [RC] ASDIRECTED Care 09/05/20 02:14 Ordered Communication Order [RC] ROUTINE Care 09/05/20 01:59 Active Communication Order [RC] ROUTINE Care 09/05/20 01:59 Active Communication Order [RC] ROUTINE Care 09/05/20 01:59 Active Heart Tones [RC] PER UNIT ROUTINE Care 09/05/20 02:14 Ordered Non Stress Test [RC] Click to Edit Care 09/05/20 02:14 Ordered Insert Urinary Catheter [OM.PC] ASDIRECTED Care 09/05/20 02:15 Ordered Local Anesthetic Infusion Pump [RC] ASDIRECTED Care 09/05/20 02:14 Ordered Notify Provider Vital Signs [RC] PRN Care 09/05/20 02:14 Ordered Notify Provider [RC] PRN Care 09/05/20 02:14 Ordered OB Check [OM.PC] Click to Edit Care 09/05/20 01:42 Ordered Oxygen Therapy [RC] ASDIRECTED Care 09/05/20 01:59 Active PCEA Epidural [RC] ASDIRECTED Care 09/05/20 01:59 Active PCEA Epidural [RC] ASDIRECTED Care 09/05/20 01:59 Active PCEA Epidural [RC] ASDIRECTED Care 09/05/20 02:14 Ordered PCEA Epidural [RC] ASDIRECTED Care 09/05/20 02:15 Ordered Peripheral IV Care [RC] . DIRECTED Care 09/05/20 01:59 Active Pulse Oximetry [RC] ASDIRECTED Care 09/05/20 01:59 Active Urinary Catheter Assessment [RC] ASDIRECTED Care 09/05/20 02:15 Ordered VTE/DVT Education [RC] Click to Edit Care 09/05/20 02:16 Ordered Vital Signs [RC] PER UNIT ROUTINE Care 09/05/20 01:59 Active Vital Signs [RC] PER UNIT ROUTINE Care 09/05/20 02:14 Ordered CORONAVIRUS COVID-19 RAPID [MOLEC] Routine Lab 09/05/20 01:59 Received DRUG SCREEN, URINE [URCHEM] Routine Lab 09/05/20 01:49 Ordered Lactated Ringers [Ringers, Lactated] 1,000 ml Med 09/05/20 02:14 Ordered IV .BOLUS Lactated Ringers [Ringers, Lactated] 1,000 ml Med 09/05/20 01:58 Active IV BOLUS Naloxone [Narcan] Med 09/05/20 01:58 Active 0.1 mg IVPUSH ASDIRECTED PRN Ropivacaine [Naropin 0.2%] 200 mg Med 09/05/20 02:00 Active Premix Bag 1 bag EPIDUR ASDIRECTED Sodium Chloride 0.9% [Saline Flush] Med 09/05/20 01:58 Active 10 ml FLUSH ASDIRECTED PRN Sodium Chloride 0.9% [Saline Flush] Med 09/05/20 02:14 Ordered 10 ml FLUSH ASDIRECTED PRN diphenhydrAMINE [Benadryl] Med 09/05/20 01:58 Active 25 mg IVPUSH Q6H PRN diphenhydrAMINE [Benadryl] Med 09/05/20 01:58 Active 50 mg IVPUSH Q6H PRN ePHEDrine [ePHEDrine sulfate] Med 09/05/20 01:58 Active 10 mg IVPUSH ASDIRECTED PRN ePHEDrine [ePHEDrine sulfate] Med 09/05/20 02:14 Ordered 10 mg IVPUSH ASDIRECTED PRN DVT/VTE Prophylaxis Reflex [OM.PC] Routine Oth 09/05/20 02:14 Ordered Epidural Catheter Management [OM.PC] Routine Oth 09/05/20 01:59 Ordered Epidural Catheter Management [OM.PC] Urgent Oth 09/05/20 02:14 Ordered Peripheral IV Insertion Pediatric [OM.PC] Routine Oth 09/05/20 01:59 Ordered Saline Lock Insert [OM.PC] Routine Oth 09/05/20 02:14 Ordered Resuscitation Status Routine Resus Stat 09/05/20 02:14 Ordered Medication Orders Diphenhydramine HCl (Diphenhydramine 50 Mg/Ml Sdv) 25 mg IVPUSH Q6H PRN PRN Reason: Itching Diphenhydramine HCl (Diphenhydramine 50 Mg/Ml Sdv) 50 mg IVPUSH Q6H PRN PRN Reason: Itching Ephedrine Sulfate (Ephedrine 50 Mg/Ml Sdv) 10 mg IVPUSH ASDIRECTED PRN PRN Reason: Hypotension Lactated Ringer's (Ringers, Lactated) 1,000 mls @ 999 mls/hr IV BOLUS ONE Stop: 09/05/20 02:58 Last Admin: 09/05/20 01:58 Dose: 999 mls/hr Documented by: PINOLAU Ropivacaine 200 mg/ Premix 100 mls @ 0 mls/hr EPIDUR ASDIRECTED BRENDEN Naloxone HCl (Naloxone 0.4 Mg/Ml Sdv) 0.1 mg IVPUSH ASDIRECTED PRN PRN Reason: Oversedation Sodium Chloride (Sodium Chloride 0.9% 10 Ml Syringe) 10 ml FLUSH ASDIRECTED PRN PRN Reason: Keep Vein Open Assessment/Plan Comment:: 09/05/20 30 year old 39 4/7 weeks active labor at term No complications with requesting an epidural Plan Anticipate a vaginal delivery CNRA called for epidural
[2020-09-05] MEDS ORDERED: Benzocaine 20% Top Spray 56 GM Bottle TOP ONE (03:13)
[2020-09-05] MEDS ORDERED: Hydrocortisone 2.5% Crm 30 GM Tube TOP PRN (03:13)
[2020-09-05] MEDS ORDERED: Lanolin 100% Cream 40 GM Tube TOP ONE (03:13)
[2020-09-05] MEDS ORDERED: Acetaminophen 325 MG Tab, 50 Tab Bulk Bottle PO PRN (03:13)
[2020-09-05] MEDS ORDERED: Witch Hazel Medicated Pads 100/Jar TOP ONE (03:13)
[2020-09-05] MEDS ORDERED: Ibuprofen 200 MG Tab, 24 Tab Bulk Bottle PO PRN (03:13)
[2020-09-05] MEDS ORDERED: Lidocaine 1% 50 ML MDV INJECT ONE (03:30)
--- NOTE | 2020-09-05 03:30 | PCM.DEL ---
L & D Note - General Info Date of Service: 09/05/20 (childbirth) Mother's Due Date: 09/08/20 - Delivery Note Labor: Spontaneous Delivery Outcome: Livebirth Infant Delivery Method: Spontaneous Vaginal Delivery-Single Delivery Mode: Spontaneous Presentation: Vertex Nuchal Cord: None Anesthesia Type: Local Anesthetic: Lidocaine (Xylocaine) 1% Plain Local Anesthetic Volume: 4cc Amniotic Fluid Description: Clear Episiotomy Type: None Laceration: 1st Degree, Perineal Suture type: Vicryl Suture size: 3-0 Placenta: Intact, Spontaneous Cord: 3 Vessels Estimated Blood Loss: 100 Resuscitation Needed: No House: Stimulated, Warmed, [place] Used Provider: Ny Reinoso Score 1 min: 9 (color) Score 5 min: 9 (color) Second Stage Interventions: Reports: Second Nurse Reviewed Heart Tones, Pushing Effectively Delivery Comments (Free Text/Narrative):: 09/05/20 This 30 year old G8 now P3 who is 39 4/7 weeks delivered a viable male infant at 0245 via in ROT position. Lynette progressed quickly to completed. AROM and complete at 0242. unmedicated , to mother's chest spontaneous crying. Active management of the third stage. The placenta delivered very quickly after the baby. The cord was double clamped and cut to delivery placenta. Apgars of 9 and 9 all for color. No nuchal cord, three vessel cord. Small 1 degree perineal tear repaired. 1% lidocaine was used as the local agent. 4, 3-0 Vicryl sutures were used to repair the tear. hemostasis achieved. No other lacerations were found of the cervix, vagina, or rectum. EBl 100cc Mother and baby to post , first stage 7154-1417 second stage 9458-0602 third stage 0458-0085 weight 7-7 - General Info Date of Service: 09/05/20 Admission Dx/Problem (Free Text): Patient Status Order with Admit Dx/Problem 09/05/20 02:14 Patient Status [ADT] Routine Admission Diagnosis/Problem Admission Diagnosis/Problem Functional Status: Reports: Pain Controlled - Review of Systems General: Reports: No Symptoms HEENT: Reports: No Symptoms Pulmonary: Reports: No Symptoms Cardiovascular: Reports: No Symptoms Gastrointestinal: Reports: No Symptoms Genitourinary: Reports: No Symptoms Musculoskeletal: Reports: No Symptoms Skin: Reports: No Symptoms Neurological: Reports: No Symptoms Psychiatric: Reports: No Symptoms - Patient Data Lab Results Last 24 Hours: Laboratory Results - last 24 hr 09/05/20 09/05/20 09/05/20 Range/Units 00:01 01:59 01:59 WBC 13.0 H (4.5-11.0) K/uL RBC 4.75 (3.30-5.50) M/uL Hgb 13.8 (12.0-15.0) g/dL Hct 41.6 (36.0-48.0) % MCV 88 (80-98) fL MCH 29 (27-31) pg MCHC 33 (32-36) % Plt Count 231 (150-400) K/uL Urine Opiates Screen Negative (NEGATIVE) Ur Oxycodone Screen Negative (NEGATIVE) Urine Methadone Screen Negative (NEGATIVE) Ur Propoxyphene Screen Negative (NEGATIVE) Ur Barbiturates Screen Negative (NEGATIVE) Ur Tricyclics Screen Negative (NEGATIVE) Ur Phencyclidine Scrn Negative (NEGATIVE) Ur Amphetamine Screen Negative (NEGATIVE) U Methamphetamines Scrn Negative (NEGATIVE) Urine MDMA Screen Negative (NEGATIVE) U Benzodiazepines Scrn Negative (NEGATIVE) U Cocaine Metab Screen Negative (NEGATIVE) U Marijuana (THC) Screen Negative (NEGATIVE) SARS CoV-2 RNA Rapid [place] Negative Med Orders - Current: Current Medications Acetaminophen (Acetaminophen 325 Mg Tab, 50 Tab Bulk Bottle) 0 mg PO Q4H PRN PRN Reason: Pain Benzocaine (Benzocaine 20% Top [place] 56 Gm Bottle) 0 gm TOP Q4H ONE Stop: 09/05/20 03:14 Diphenhydramine HCl (Diphenhydramine 50 Mg/Ml Sdv) 25 mg IVPUSH Q6H PRN PRN Reason: Itching Diphenhydramine HCl (Diphenhydramine 50 Mg/Ml Sdv) 50 mg IVPUSH Q6H PRN PRN Reason: Itching Emollient Ointment (Lanolin 100% Cream 40 Gm Tube) 1 gm TOP ASDIRECTED ONE Stop: 09/05/20 03:14 Ephedrine Sulfate (Ephedrine 50 Mg/Ml Sdv) 10 mg IVPUSH ASDIRECTED PRN PRN Reason: Hypotension Hydrocortisone (Hydrocortisone 2.5% Crm 30 Gm Tube) 1 gm TOP ASDIRECTED PRN PRN Reason: Itching Ropivacaine 200 mg/ Premix 100 mls @ 0 mls/hr EPIDUR ASDIRECTED BRENDEN Ibuprofen (Ibuprofen 200 Mg Tab, 24 Tab Bulk Bottle) 600 mg PO Q6H PRN PRN Reason: Pain Naloxone HCl (Naloxone 0.4 Mg/Ml Sdv) 0.1 mg IVPUSH ASDIRECTED PRN PRN Reason: Oversedation Sodium Chloride (Sodium Chloride 0.9% 10 Ml Syringe) 10 ml FLUSH ASDIRECTED PRN PRN Reason: Keep Vein Open Sodium Chloride (Sodium Chloride 0.9% 10 Ml Syringe) 10 ml FLUSH ASDIRECTED PRN PRN Reason: Keep Vein Open Witch Tamanna (Witch Tamanna Medicated Pads 100/Jar) 1 pad TOP ASDIRECTED ONE Stop: 09/05/20 03:14 Discontinued Medications Ephedrine Sulfate (Ephedrine 50 Mg/Ml Sdv) 10 mg IVPUSH ASDIRECTED PRN PRN Reason: Hypotension Lactated Ringer's (Ringers, Lactated) 1,000 mls @ 999 mls/hr IV BOLUS ONE Stop: 09/05/20 02:58 Last Admin: 09/05/20 01:58 Dose: 999 mls/hr Documented by: Oxytocin/Sodium Chloride (Pitocin In Ns 20 Units/1,000 Ml) Confirm Administered Dose 20 unit in 1,000 mls @ as directed .ROUTE .STK-MED ONE Stop: 09/05/20 02:08 Lactated Ringer's (Ringers, Lactated) 1,000 mls @ 999 mls/hr IV .BOLUS ONE Stop: 09/05/20 03:14 Last Admin: 09/05/20 02:28 Dose: Not Given Documented by: Lidocaine HCl (Lidocaine 1% 50 Ml Mdv) Confirm Administered Dose 100 ml .ROUTE .STK-MED ONE Stop: 09/05/20 02:08 Naloxone HCl (Naloxone 0.4 Mg/Ml Sdv) Confirm Administered Dose 0.4 mg .ROUTE .STK-MED ONE Stop: 09/05/20 02:08 - Exam General: Alert, Oriented HEENT: Pupils Equal Neck: Supple Lungs: Normal Respiratory Effort Cardiovascular: Regular Rate GI/Abdominal Exam: Soft, Non-Tender (Female) Exam: Normal External Exam, Cervical Dilatation, Enlarged Uterus, Vaginal Bleeding Back Exam: Normal Inspection Extremities: No Pedal Edema, Normal Capillary Refill Skin: Warm Neurological: No New Focal Deficit Psy/Mental Status: Alert, Normal Affect, Normal Mood - Problem List & Annotations (1) Active labor at term SNOMED Code(s): 36185649 Code(s): IMM7611 - Status: Acute Current Visit: Yes (2) Vaginal delivery SNOMED Code(s): 516854681 Code(s): O80 - ENCOUNTER FOR FULL-TERM UNCOMPLICATED DELIVERY Status: Acute Current Visit: Yes (3) Vaginal tear resulting from childbirth SNOMED Code(s): 739878333 Code(s): O71.4 - OBSTETRIC HIGH VAGINAL LACERATION ALONE Status: Acute Current Visit: Yes (4) (infant) SNOMED Code(s): 487625415 Code(s): Z78.9 - OTHER SPECIFIED HEALTH STATUS Status: Acute Current Visit: No - Problem List Review Problem List Initiated/Reviewed/Updated: Yes - My Orders Last 24 Hours: My Active Orders 09/05/20 01:42 OB Check [OM.PC] Click to Edit 09/05/20 01:58 Naloxone [Narcan] 0.1 mg IVPUSH ASDIRECTED PRN Sodium Chloride 0.9% [Saline Flush] 10 ml FLUSH ASDIRECTED PRN diphenhydrAMINE [Benadryl] 25 mg IVPUSH Q6H PRN diphenhydrAMINE [Benadryl] 50 mg IVPUSH Q6H PRN 09/05/20 01:59 Communication Order [RC] ROUTINE Communication Order [RC] ROUTINE Communication Order [RC] ROUTINE Oxygen Therapy [RC] ASDIRECTED PCEA Epidural [RC] ASDIRECTED PCEA Epidural [RC] ASDIRECTED Peripheral IV Care [RC] . DIRECTED Pulse Oximetry [RC] ASDIRECTED Vital Signs [RC] PER UNIT ROUTINE Epidural Catheter Management [OM.PC] Routine Peripheral IV Insertion Pediatric [OM.PC] Routine 09/05/20 02:00 Ropivacaine [Naropin 0.2%] 200 mg Premix Bag 1 bag EPIDUR ASDIRECTED 09/05/20 02:14 Communication Order [RC] ASDIRECTED Communication Order [RC] ASDIRECTED Heart Tones [RC] PER UNIT ROUTINE Non Stress Test [RC] Click to Edit Local Anesthetic Infusion Pump [RC] ASDIRECTED Notify Provider Vital Signs [RC] PRN Notify Provider [RC] PRN PCEA Epidural [RC] ASDIRECTED Vital Signs [RC] PER UNIT ROUTINE Sodium Chloride 0.9% [Saline Flush] 10 ml FLUSH ASDIRECTED PRN ePHEDrine [ePHEDrine sulfate] 10 mg IVPUSH ASDIRECTED PRN DVT/VTE Prophylaxis Reflex [OM.PC] Routine Epidural Catheter Management [OM.PC] Urgent Saline Lock Insert [OM.PC] Routine Resuscitation Status Routine 09/05/20 02:15 Insert Urinary Catheter [OM.PC] ASDIRECTED PCEA Epidural [RC] ASDIRECTED Urinary Catheter Assessment [RC] ASDIRECTED 09/05/20 02:16 Antiembolic Devices [RC] .Routine VTE/DVT Education [RC] Click to Edit 09/05/20 03:13 Patient Status [ADT] Routine Vital Signs [RC] PFP Acetaminophen [Tylenol Bulk Bottle] See Dose Instructions PO Q4H PRN Benzocaine [Zucc-Y-Egfmmes 20% [place]] See Dose Instructions TOP Q4H ONE Hydrocortisone [Proctozone-HC 2.5% Crm] 1 gm TOP ASDIRECTED PRN Ibuprofen [Motrin Bulk Bottle] 600 mg PO Q6H PRN Lanolin [Lansinoh HPA] 1 gm TOP ASDIRECTED ONE witch Tamanna [Tucks] 1 pad TOP ASDIRECTED ONE 09/05/20 05:11 CBC WITH AUTO DIFF [HEME] AM 09/05/20 Breakfast Regular Diet [DIET] - Assessment Assessment:: 30 year old 39 4/7 weeks delivered via without complications repair small 1st degree tear [place] male, normal - Plan Plan:: 09/05/20 30 year old 39 4/7 weeks active labor at term No complications with requesting an epidural Plan Anticipate a vaginal delivery CNRA called for epidural 09/05/20 routine cares support 24-48 hour stay cbc in am
[2020-09-05] MEDS ORDERED: Benzocaine 20% Top Spray 56 GM Bottle TOP PRN (07:31)
[2020-09-05] MEDS ORDERED: Lanolin 100% Cream 40 GM Tube TOP PRN (07:32)
[2020-09-05] MEDS ORDERED: Witch Hazel Medicated Pads 100/Jar TOP PRN (07:33)
--- NOTE | 2020-09-06 09:22 | PCM.PNPP ---
- General Info Date of Service: 09/06/20 (PPD 1 D/C) Admission Dx/Problem (Free Text): Patient Status Order with Admit Dx/Problem 09/05/20 02:14 Patient Status [ADT] Routine Admission Diagnosis/Problem Admission Diagnosis/Problem Functional Status: Reports: Pain Controlled - Review of Systems General: Reports: No Symptoms HEENT: Reports: No Symptoms Pulmonary: Reports: No Symptoms Cardiovascular: Reports: No Symptoms Gastrointestinal: Reports: No Symptoms Genitourinary: Reports: No Symptoms Musculoskeletal: Reports: No Symptoms Skin: Reports: No Symptoms Neurological: Reports: No Symptoms Psychiatric: Reports: No Symptoms - Patient Data Vital Signs - Most Recent: Last Vital Signs Temp 96.3 F L 09/06/20 04:00 Pulse 77 09/06/20 04:00 Resp 16 09/06/20 04:00 BP 108/79 09/06/20 04:00 Pulse Ox 97 09/06/20 04:00 Weight - Most Recent: 240 lb I&O - Last 24 Hours: Intake & Output 09/05/20 09/06/20 09/06/20 22:59 06:59 14:59 Intake Total 1000 1000 Balance 1000 1000 Med Orders - Current: Current Medications Acetaminophen (Acetaminophen 325 Mg Tab, 50 Tab Bulk Bottle) 0 mg PO Q4H PRN PRN Reason: Pain Last Admin: 09/05/20 03:41 Dose: 1 bottle Documented by: Benzocaine (Benzocaine 20% Top [place] 56 Gm Bottle) 0 gm TOP Q4H PRN PRN Reason: PAIN Emollient Ointment (Lanolin 100% Cream 40 Gm Tube) 1 gm TOP ASDIRECTED PRN PRN Reason: NIPPLE PAIN Hydrocortisone (Hydrocortisone 2.5% Crm 30 Gm Tube) 1 gm TOP ASDIRECTED PRN PRN Reason: Itching Ibuprofen (Ibuprofen 200 Mg Tab, 24 Tab Bulk Bottle) 600 mg PO Q6H PRN PRN Reason: Pain Last Admin: 09/05/20 03:40 Dose: 1 bottle Documented by: Sodium Chloride (Sodium Chloride 0.9% 10 Ml Syringe) 10 ml FLUSH ASDIRECTED PRN PRN Reason: Keep Vein Open Witch Tamanna (Witch Tamanna Medicated Pads 100/Jar) 1 pad TOP ASDIRECTED PRN PRN Reason: HEMMHOIRDS Discontinued Medications Benzocaine (Benzocaine 20% Top [place] 56 Gm Bottle) 0 gm TOP Q4H ONE Stop: 09/05/20 03:14 Last Admin: 09/05/20 03:37 Dose: 1 bottle Documented by: Diphenhydramine HCl (Diphenhydramine 50 Mg/Ml Sdv) 25 mg IVPUSH Q6H PRN PRN Reason: Itching Diphenhydramine HCl (Diphenhydramine 50 Mg/Ml Sdv) 50 mg IVPUSH Q6H PRN PRN Reason: Itching Emollient Ointment (Lanolin 100% Cream 40 Gm Tube) 1 gm TOP ASDIRECTED ONE Stop: 09/05/20 03:14 Last Admin: 09/05/20 03:37 Dose: 1 tube Documented by: Ephedrine Sulfate (Ephedrine 50 Mg/Ml Sdv) 10 mg IVPUSH ASDIRECTED PRN PRN Reason: Hypotension Ephedrine Sulfate (Ephedrine 50 Mg/Ml Sdv) 10 mg IVPUSH ASDIRECTED PRN PRN Reason: Hypotension Lactated Ringer's (Ringers, Lactated) 1,000 mls @ 999 mls/hr IV BOLUS ONE Stop: 09/05/20 02:58 Last Admin: 09/05/20 01:58 Dose: 999 mls/hr Documented by: Ropivacaine 200 mg/ Premix 100 mls @ 0 mls/hr EPIDUR ASDIRECTED BRENDEN Oxytocin/Sodium Chloride (Pitocin In Ns 20 Units/1,000 Ml) Confirm Administered Dose 20 unit in 1,000 mls @ as directed .ROUTE .STK-MED ONE Stop: 09/05/20 02:08 Last Admin: 09/05/20 03:30 Dose: Not Given Documented by: Lactated Ringer's (Ringers, Lactated) 1,000 mls @ 999 mls/hr IV .BOLUS ONE Stop: 09/05/20 03:14 Last Admin: 09/05/20 02:28 Dose: Not Given Documented by: Oxytocin/Sodium Chloride (Pitocin In Ns 20 Units/1,000 Ml) 20 unit in 1,000 mls @ 999 mls/hr IV TITRATE BRENDEN; Protocol Last Admin: 09/05/20 03:41 Dose: 999 mls/hr, 999 mls/hr Documented by: Lidocaine HCl (Lidocaine 1% 50 Ml Mdv) Confirm Administered Dose 100 ml .ROUTE .STK-MED ONE Stop: 09/05/20 02:08 Last Admin: 09/05/20 03:30 Dose: Not Given Documented by: Lidocaine HCl (Lidocaine 1% 50 Ml Mdv) 100 ml INJECT ONETIME ONE Stop: 09/05/20 03:31 Last Admin: 09/05/20 03:40 Dose: 50 ml Documented by: Naloxone HCl (Naloxone 0.4 Mg/Ml Sdv) 0.1 mg IVPUSH ASDIRECTED PRN PRN Reason: Oversedation Naloxone HCl (Naloxone 0.4 Mg/Ml Sdv) Confirm Administered Dose 0.4 mg .ROUTE .STK-MED ONE Stop: 09/05/20 02:08 Last Admin: 09/05/20 03:30 Dose: Not Given Documented by: Sodium Chloride (Sodium Chloride 0.9% 10 Ml Syringe) 10 ml FLUSH ASDIRECTED PRN PRN Reason: Keep Vein Open Witch Tamanna (Witch Tamanna Medicated Pads 100/Jar) 1 pad TOP ASDIRECTED ONE Stop: 09/05/20 03:14 Last Admin: 09/05/20 03:37 Dose: 1 pad Documented by: - Interaction Infant Disposition, : in Room with Family Infant Interaction: Holding Infant Feeding: Continues to Breastfeed, Difficulty with Latch-on Support Person: Significant Other - Recovery Exam Fundal Tone: Firm Fundal Level: 1 Fingerbreadths Below Umbilicus Fundal Placement: Midline Lochia Amount: Moderate Lochia Color: Rubra/Red Perineum Description: Intact, Minimal Bruising/Swelling, Other (see below) (digital exam, repair healing nicely) Episiotomy/Laceration: Approximated Bladder Status: Voiding Urinary Elimination: Voided - Exam General: Alert, Oriented HEENT: Pupils Equal Neck: Supple Lungs: Normal Respiratory Effort Cardiovascular: Regular Rate GI/Abdominal Exam: Soft Extremities: Normal Inspection, No Pedal Edema, Normal Capillary Refill Skin: Warm, Intact Wound/Incisions: Healing Well Neurological: No New Focal Deficit Psy/Mental Status: Alert, Normal Affect, Normal Mood - Problem List & Annotations (1) Active labor at term SNOMED Code(s): 79870062 Code(s): KZL3755 - Status: Acute Current Visit: Yes (2) Vaginal delivery SNOMED Code(s): 576091149 Code(s): O80 - ENCOUNTER FOR FULL-TERM UNCOMPLICATED DELIVERY Status: Acute Current Visit: Yes (3) Vaginal tear resulting from childbirth SNOMED Code(s): 258482675 Code(s): O71.4 - OBSTETRIC HIGH VAGINAL LACERATION ALONE Status: Acute Current Visit: Yes (4) (infant) SNOMED Code(s): 986899519 Code(s): Z78.9 - OTHER SPECIFIED HEALTH STATUS Status: Acute Current Visit: No - Problem List Review Problem List Initiated/Reviewed/Updated: Yes - Assessment Assessment:: 30 year old 39 4/7 weeks delivered via without complications repair small 1st degree tear male, normal 09/06/20 30 year old 39 4/7 weeks doing well Happy breast soft flow light and cramping moderate repair intact no edema in legs hgb 12.6 - Plan Plan:: 09/05/20 30 year old 39 4/7 weeks active labor at term No complications with requesting an epidural Plan Anticipate a vaginal delivery CNRA called for epidural 09/05/20 routine cares support 24-48 hour stay cbc in am 09/06/20 Home today See Priscila Perdomo in 6 weeks for a post visit
[2020-09-06 10:29] VITALS: BP 110/68; PULSE 76
== END 2020-09-06 12:51 | disposition home or self-care (01) | DRG 807 ==
LOC: JP.OBCHECK 01:35 → JP.OB 01:58 → OBSVTOIN 02:45 → JP.MS 03:16
PROVIDERS: ADMIT Nurse Practitioner Family; ATTEND Nurse Practitioner Family
PROC: 10E0XZZ Delivery of Products of Conception, External Approach (ICD-10-PCS; principal; 2020-09-05)
PROC: 10907ZC Drainage of Amniotic Fluid, Therapeutic from Products of Conception, Via Natural or Artificial Opening (ICD-10-PCS; 2020-09-05)
PROC: 0HQ9XZZ Repair Perineum Skin, External Approach (ICD-10-PCS; 2020-09-05)
DX: O70.0 First degree perineal laceration during delivery (principal); Z37.0 Single live birth; Z3A.39 39 weeks gestation of pregnancy; Z20.822 Contact with and (suspected) exposure to COVID-19
CPT/HCPCS: 36415; 80305-QW; 85025; 85027; 99211; A9270-GY; J2001; J2590; J7120; U0002

== ENCOUNTER 2021-04-17 13:18 | Emergency (ER) | payer MEDICAID ==
[2021-04-17 13:33] VITALS: BP 117/67; PULSE 113
[2021-04-17] MEDS ORDERED: methylPREDNISolone Sodium Succinate 125 MG/2 ML SDV IM ONE (13:51)
--- NOTE | 2021-04-17 13:57 | EDM.PDOC ---
ED HPI GENERAL MEDICAL PROBLEM - General Chief Complaint: Skin Complaint Stated Complaint: NEW TATTOO INFECTED Time Seen by Provider: 04/17/21 13:35 Source of Information: Reports: Patient History Limitations: Reports: No Limitations - History of Present Illness INITIAL COMMENTS - FREE TEXT/NARRATIVE: 31-year-old female got a fairly large tattoo on her right arm, she also had a tattoo on her left wrist and a repair of a tattoo on her left arm. The tattoo on her right arm is very inflamed today, red, hot, and she had shaking chills overnight. She is a little concerned about infection because the layout artist was "on his phone a lot" so she is unsure if he stayed sterile. No nausea or vomiting. No other complaints at this time. Onset: Gradual Duration: Hour(s): (Symptoms for 12 hours) Location: Reports: Upper Extremity, Right Associated Symptoms: Reports: Fever/Chills Right Upper Arm Pain Score (Numeric/FACES): 10 - Related Data Allergies Allergy/AdvReac Type Severity Reaction Status Date / Time latex Allergy Rash Verified 08/30/20 11:25 Home Meds: Home Meds Pnv No.95/Ferrous Fum/Folic AC [ Tablet] 1 tab PO DAILY 05/23/18 [History] hydrOXYzine HCL [hydrOXYzine] 1 tab PO TID PRN 08/30/20 [History] Past Medical History - Past Health History Medical/Surgical History: Denies Medical/Surgical History HEENT History: Reports: None Cardiovascular History: Reports: None Respiratory History: Reports: None Gastrointestinal History: Reports: None Genitourinary History: Reports: None [employer] History: Reports: Musculoskeletal History: Reports: Fracture Other Musculoskeletal History: foot Neurological History: Reports: Concussion Psychiatric History: Reports: None Endocrine/Metabolic History: Reports: None Hematologic History: Reports: None Immunologic History: Reports: None Oncologic (Cancer) History: Reports: None Dermatologic History: Reports: None - Past Surgical History Head Surgeries/Procedures: Reports: None Social & Family History - Family History Family Medical History: No Pertinent Family History OBGYN: Reports: Other (See Below) Other OBGYN Family History: Mother had cervical cancer - Tobacco Use Tobacco Use Status *Q: Never Tobacco User - Caffeine Use Caffeine Use: Reports: Soda - Recreational Drug Use Recreational Drug Use: No ED ROS GENERAL - Review of Systems Review Of Systems: See Below Constitutional: Reports: Fever, Chills, Malaise HEENT: Reports: No Symptoms Respiratory: Reports: No Symptoms Cardiovascular: Reports: No Symptoms GI/Abdominal: Reports: No Symptoms Skin: Reports: Other (Marked erythema, itching and tenderness around her large right tattoo) ED EXAM, SKIN/RASH Exam: See Below Exam Limited By: No Limitations General Appearance: Alert, No Apparent Distress, Other (Looks uncomfortable but not distressed) Eye Exam: Bilateral Eye: Normal Inspection Head: Atraumatic Respiratory/Chest: No Respiratory Distress, Lungs Clear Cardiovascular: Regular Rate, Rhythm, Tachycardia (Mild tachycardia) Extremities: Other (The right lateral shoulder has a large multicolored tattoo with intense sharply demarcated erythema around the tattoo with soft tissue swelling and warmth) Neurological: Alert, Oriented Course - Vital Signs Last Recorded V/S: Last Vital Signs Temp 98.2 F 04/17/21 13:42 Pulse 113 H 04/17/21 13:42 Resp 16 04/17/21 13:42 BP 117/67 04/17/21 13:42 Pulse Ox 98 04/17/21 13:42 - Orders/Labs/Meds Meds: Medications Discontinued Medications Generic Name Dose Route Start Last Admin Trade Name Valerie PRN Reason Stop Dose Admin Methylprednisolone Sodium Succinate 125 mg 04/17/21 13:51 04/17/21 14:19 Methylprednisolone Sodium Succinate 125 Mg/2 Ml Sdv IM 04/17/21 13:52 125 mg ONETIME ONE Administration - Re-Assessments/Exams Free Text/Narrative Re-Assessment/Exam: 04/17/21 13:55 I explained that this is early for bacterial cellulitis but the possibility is present. I gave her 125 mg of IM Solu-Medrol for an acute immunologic inflammatory reaction, and started her on cephalexin 500 mg 3 times a day. Enc ouraged her to ice this down aggressively for the next 1 to 2 days and return if worsening. Departure - Departure Time of Disposition: 14:29 Disposition: Home, Self-Care 01 Clinical Impression: Cellulitis of right shoulder - Discharge Information Instructions: Cellulitis, Adult Referrals: PCP,None [Primary Care Provider] - Forms: ED Department Discharge Care Plan Goals: Continue icing the area down as needed, and take antibiotic at least 5 days as prescribed. Return if worsening despite treatment such as persistent fever, vomiting the medication or increased erythema and pain. Sepsis Event Note (ED) - Evaluation Sepsis Screening Result: No Definite Risk - Focused Exam Vital Signs: Vital Signs Temp Pulse Resp BP Pulse Ox 04/17/21 13:42 98.2 F 113 H 16 117/67 98 04/17/21 13:32 98.2 F 113 H 16 117/67 98
== END 2021-04-17 14:29 | disposition home or self-care (01) ==
LOC: JP.ED 13:18
DX: L03.113 Cellulitis of right upper limb (principal); Z91.040 Latex allergy status
CPT/HCPCS: 96372; 99283; J2930

== ENCOUNTER 2021-06-07 17:11 | Emergency (ER) | payer MEDICAID ==
[2021-06-07 17:23] VITALS: BP 96/61; PULSE 108
== END 2021-06-07 18:27 | disposition home or self-care (01) ==
LOC: JP.ED 17:11
DX: S80.212A Abrasion, left knee, initial encounter (principal); S80.211A Abrasion, right knee, initial encounter; S60.212A Contusion of left wrist, initial encounter; Z91.040 Latex allergy status; W18.30XA Fall on same level, unspecified, initial encounter
CPT/HCPCS: 73110-26-LT; 73110-LT; 99283

== ENCOUNTER 2022-04-14 05:04 | Inpatient (IN) | payer MEDICAID ==
[2022-04-14] MEDS ORDERED: Sodium Chloride 0.9% 10 ML Syringe FLUSH PRN (06:17)
[2022-04-14] MEDS ORDERED: Lactated Ringers 1,000 ML IV ONE (06:18)
[2022-04-14] MEDS ORDERED: Ibuprofen 200 MG Tab, 24 Tab Bulk Bottle PO PRN (14:43)
[2022-04-14] MEDS ORDERED: Acetaminophen 325 MG Tab, 50 Tab Bulk Bottle PO PRN (14:44)
[2022-04-15 07:27] VITALS: BP 128/69; PULSE 82
== END 2022-04-15 14:10 | disposition home or self-care (01) | DRG 807 ==
LOC: JP.OB 05:16 → OBSVTOIN 09:09 → JP.MS 12:39
PROVIDERS: ADMIT Family Medicine; ATTEND Obstetrics & Gynecology
PROC: 10E0XZZ Delivery of Products of Conception, External Approach (ICD-10-PCS; principal; 2022-04-14)
PROC: 10907ZC Drainage of Amniotic Fluid, Therapeutic from Products of Conception, Via Natural or Artificial Opening (ICD-10-PCS; 2022-04-14)
DX: O48.0 Post-term pregnancy (principal); Z37.0 Single live birth; Z3A.40 40 weeks gestation of pregnancy; Z91.040 Latex allergy status; Z20.822 Contact with and (suspected) exposure to COVID-19; O77.0 Labor and delivery complicated by meconium in amniotic fluid
CPT/HCPCS: 36415; 81001; 84112; 85025; 86850; 86900; 86901; 99211; A9270-GY; J2590; J7120; U0002

== ENCOUNTER 2022-12-07 08:48 | Emergency (ER) | payer MEDICAID ==
[2022-12-07 09:26] LABS: BASE EXCESS VENOUS 1.3 mm/L; BICARBONATE,VENOUS 27.1 mmol/L; CARBOXYHEMOGLOBIN 1.9 % (0.0-1.6); METHEMOGLOBIN 1.2 %; O2 SATURATION VENOUS 59.4; OXYHEMOGLOBIN 57.6 %; PCO2 VENOUS 50.2 mm/Hg; PH,VENOUS 7.352 (7.350-7.450); TOTAL HEMOGLOBIN 13.4 g/dL (12.0-16.0)
[2022-12-07 09:27] LABS: HEMATOCRIT 40.1 % (34.3-46.0); MEAN CORPUSCULAR HEMOGLOBIN 28.2 pg (31.6-35.5); MEAN CORPUSCULAR HGB CONC 32.4 g/dL (31.6-35.5); RED BLOOD CELL COUNT 4.61 M/uL (3.77-5.24); WHITE BLOOD CELL COUNT,WBC 6.3 K/uL (3.2-11.0)
[2022-12-07 09:34] LABS: PO2 VENOUS 37.7 mm/Hg
[2022-12-07 09:38] LABS: PROTHROMBIN TIME 10.1 sec (9.2-10.6)
[2022-12-07 09:57] LABS: ALANINE AMINOTRANSFERASE,ALT 24 U/L (12-78); ALBUMIN 3.4 g/dL (3.4-5.0); ALKALINE PHOSPHATASE 84 U/L (46-116); ANION GAP 6.3 mmol/L (5.0-14.0); ASPARTATE AMNIOTRANSFERASE,AST 19 U/L (15-37); BILIRUBIN TOTAL 0.2 mg/dL (0.2-1.0); BLOOD UREA NITROGEN,BUN 13 mg/dL (7-18); CALCIUM 8.9 mg/dL (8.5-10.1); CARBON DIOXIDE,CO2 29 mmol/L (21-32); CHLORIDE,CL 106 mmol/L (100-108); CREATININE 0.7 mg/dL (0.6-1.0); EST CRCL DRUG DOSING (CG) 113.24 mL/min; ESTIMATED GFR 119 mL/min (>60); GLUCOSE RANDOM 107 mg/dL (74-106); POTASSIUM,K 4.3 mmol/L (3.6-5.2); PRO B-TYPE NATRIUR PEPT,BNPPRO 71 pg/mL (5-125); PROTEIN TOTAL,TP 6.9 g/dL (6.4-8.2); SODIUM,NA 141 mmol/L (140-148)
[2022-12-07 10:00] VITALS: BP 104/51; PULSE 44
[2022-12-07 10:43] LABS: APPEARANCE,URINE CLOUDY (CLEAR); BILIRUBIN,URINE NEGATIVE (NEGATIVE); COLOR,URINE YELLOW (YELLOW); GLUCOSE,URINE NEGATIVE (NEGATIVE); KETONES,URINE NEGATIVE (NEGATIVE); LEUKOCYTE ESTERASE,URINE TRACE (NEGATIVE); NITRITE,URINE NEGATIVE (NEGATIVE); OCCULT BLOOD,URINE LARGE (NEGATIVE); PH,URINE 5.5 (5.0-8.0); PROTEIN,URINE NEGATIVE (NEGATIVE); UROBILINOGEN,URINE 0.2 EU/dL (0.2-1.0)
[2022-12-07 10:47] LABS: AMPHETAMINES SCREEN, URINE NEGATIVE (NEGATIVE); BARBITURATE SCREEN,URINE NEGATIVE (NEGATIVE); BENZODIAZEPINES SCREEN,URINE NEGATIVE (NEGATIVE); METHADONE SCREEN, URINE NEGATIVE (NEGATIVE); METHAMPHETAMINES SCREEN, URINE NEGATIVE (NEGATIVE); OXYCODONE SCREEN,URINE NEGATIVE (NEGATIVE); PROPOXYPHENE SCREEN,URINE NEGATIVE (NEGATIVE); THC SCREEN,URINE 50 NG/ML PRESUMPTIVE POSITIVE (NEGATIVE)
[2022-12-07 10:49] LABS: AMORPHOUS SEDIMENT,URINE MODERATE; BACTERIA,URINE RARE; EPITHELIAL CELLS,URINE FEW; MUCUS,URINE FEW; RBC,URINE NOT SEEN (0-5); WBC,URINE 0-5 (0-5)
== END 2022-12-07 11:12 | disposition home or self-care (01) ==
LOC: JP.ED 08:48
DX: R09.1 Pleurisy (principal); Z91.040 Latex allergy status
CPT/HCPCS: 36415; 71046; 71046-26; 80053; 80305-QW; 80307; 81001; 81025; 82803; 83605; 83880; 84145; 84484; 85027; 85379; 85610; 93005; 93010; 99283; 99285

== ENCOUNTER 2024-05-25 00:12 | Emergency (ER) | payer MEDICAID ==
[2024-05-25 02:07] VITALS: BP 121/69; PULSE 91
== END 2024-05-25 03:34 ==
LOC: JP.ED 00:12
DX: R07.89 Other chest pain (principal); Z91.040 Latex allergy status
CPT/HCPCS: 87428-QW; 93010; 99284; 99285